=== PATIENT | female | born 1995 | race Caucasian/White ===

== ENCOUNTER 2017-01-29 11:19 | Emergency (ER) | payer BC ==
[2017-01-29] MEDS ORDERED: ACETAMINOPHEN 325 MG TAB PO ONE (11:57)
[2017-01-29 12:31] LABS: ADD DIFF? YES; ADD MORPH? NO; ADD SCAN? NO; ATYPICAL LYMPHOCYTE FLAG 10 (0-99); FRAGMENT RBC FLAG 20 (0-99); HEMATOCRIT 39.4 % (38.0-47.0); LEFT SHIFT FLG 30 (0-99); LIPEMIA HEMOLYSIS FLAG 80 (0-99); MEAN CELL HEMOGLOBIN 22.3 pg (27.9-34.1); MEAN CELL HEMOGLOBIN CONCENTR. 30.5 g/dL (32.4-36.7); MEAN CELL VOLUME 73.2 fL (81.5-99.8); MEAN PLATELET VOLUME 10.4 fL (8.7-11.7); PLATELET CLUMPS FLAG 20 (0-99); PLATELET COUNT 403 10^3/uL (150-400); RED BLOOD CELL COUNT 5.38 10^6/uL (4.18-5.33); RED CELL DISTRIBUTION WIDTH 17.3 % (11.5-15.2)
[2017-01-29 12:37] LABS: ANION GAP 17 mEq/L (8-16); CALCIUM 9.6 mg/dL (8.5-10.4); CARBON DIOXIDE 21 mEq/l (22-31); CHLORIDE 105 mEq/L (97-110); CREATININE 0.9 mg/dL (0.6-1.0); GLOMERULAR FILTRATION RATE > 60; GLUCOSE 66 mg/dL (70-100); POTASSIUM 4.4 mEq/L (3.5-5.2); SODIUM 143 mEq/L (134-144)
--- NOTE | 2017-01-29 12:52 | EDPHY ---
H & P Smoking Status: Never smoked Time Seen by Provider: 01/29/17 12:13 HPI/ROS: CHIEF COMPLAINT: Seizure HISTORY OF PRESENT ILLNESS: 21-year-old female presents to the emergency department by ambulance after having a seizure. The patient has a known seizure disorder. She is also however an insulin-dependent diabetic and her pump did not report her overnight reading. She does not think that she became hypoglycemic and had a seizure. She has had low readings even into the 40s and has not had seizures in the past. The patient presents with a headache. She did bite her tongue, however she was not incontinent of urine. She denies chest pain or difficulty breathing. Denies abdominal pain. Denies injury to her upper or lower extremities. She had URI symptoms over last week however she feels that this is resolving. She does not feel short of breath. REVIEW OF SYSTEMS: Constitutional: No fever, no chills. Eyes: No double or blurry vision. ENT: No sore throat. Respiratory: No cough, no shortness of breath. Cardiac: No chest pain. Gastrointestinal: No abdominal pain, vomiting or diarrhea. Genitourinary: No dysuria. Musculoskeletal: No neck or back pain. Skin: No rashes. Neurological: headache. (Harriet Caro) Past Medical/Surgical History: Insulin-dependent diabetic on insulin pump, seizure disorder last seizure 3 years ago (Harriet Caro) Social History: [employer] student (Harriet Caro) Physical Exam: General Appearance: Alert, no distress. Mentating normally and answering questions appropriately. Eyes: Pupils equal and round. Extraocular motions are all intact. ENT: Mouth: Mucous membranes moist. Small tongue abrasion on the left lateral aspect of the tongue. No active bleeding noted. Respiratory: No wheezing, rhonchi, or rales, lungs are clear to auscultation. Cardiovascular: Regular rate and rhythm. Gastrointestinal: Abdomen is soft and nontender, no masses, no rebound or guarding, bowel sounds normal. Neurological: Alert and oriented x 3, cranial nerves II through XII grossly intact Skin: Warm and dry, no rashes. Musculoskeletal: Nontender to palpate along the cervical, thoracic or lumbar spine. Neck is supple. Extremities: Full range of motion and no peripheral edema. Psychiatric: Patient is oriented X 3, there is no agitation. (Harriet Caro) Constitutional: Initial Vital Signs Temperature (C) 36.5 C 01/29/17 11:27 Heart Rate 102 H 01/29/17 11:27 Respiratory Rate 16 01/29/17 11:27 Blood Pressure 146/114 H 01/29/17 11:27 O2 Sat (%) 99 01/29/17 11:27 O2 Delivery Mode Room Air Allergies/Adverse Reactions: No Known Allergies Allergy (Unverified 01/29/17 11:27) Home Medications: Medication Instructions Recorded Insulin Syringe 01/29/17 Medical Decision Making - Diagnostics Imaging: Discussed imaging studies w/ body recall instructor Radiologist - Diagnostics Imaging Results: Imaging Impressions Head CT 01/29/17 12:54 Impression: Normal noncontrast CT of the brain. Results called to. Harriet Aguayo PA-C, at 1:52 PM at the time of the interpretation. ED Course/Re-evaluation: The patient was evaluated and managed by the physician's general assistant. My cosignature indicates that I reviewed the chart and I agree with the findings and plan of care as documented. I am the secondary supervising physician. ( Radha Gomes) Case was discussed with Dr. Radha Goems, secondary supervising physician, who did not directly evaluate the patient but agrees with treatment and plan. CO2 was 21. She received IV normal saline. She also received 1 mg of Ativan IV. She had no recurring seizure activity. She was given urology follow-up. She was given copies of her labs. Her blood sugar was 100 upon discharge. She did drink some apple juice. Her pump seems to be working now. She is comfortable being discharged home. She will continue her seizure medications as prescribed. (Harriet Caro) Differential Diagnosis: Seizure including but not limited to electrolyte abnormality, alcohol withdrawal , medication noncompliance, head injury, and breakthrough seizure. (Harriet Caro) - Data Points Laboratory Results: Laboratory Results 01/29/17 11:45 01/29/17 11:45 01/29/17 01/29/17 01/29/17 11:45 11:45 11:45 WBC 7.80 10^3/uL 10^3/uL (3.80-9.50) RBC 5.38 10^6/uL H 10^6/uL (4.18-5.33) Hgb 12.0 g/dL L g/dL (12.6-16.3) POC Hgb Hct 39.4 % % (38.0-47.0) POC Hct MCV 73.2 fL L fL (81.5-99.8) MCH 22.3 pg L pg (27.9-34.1) MCHC 30.5 g/dL L g/dL (32.4-36.7) RDW 17.3 % H % (11.5-15.2) Plt Count 403 10^3/uL H 10^3/uL (150-400) MPV 10.4 fL fL (8.7-11.7) Neut % (Auto) Not Reported Lymph % (Auto) Not Reported Bradford % (Auto) Not Reported Eos % (Auto) Not Reported Baso % (Auto) Not Reported Nucleat RBC Rel Count 0.0 % % (0.0-0.2) Absolute Neuts (auto) Not Reported Absolute Lymphs (auto) Not Reported Absolute Monos (auto) Not Reported Absolute Eos (auto) Not Reported Absolute Basos (auto) Not Reported Absolute Nucleated RBC 0.00 10^3/uL 10^3/uL (0-0.01) Immature Gran % Not Reported Seg Neutrophils % 57 % % Band Neutrophils % 2 % % Lymphocytes % 32 % % Monocytes % 4 % % Eosinophils % 3 % % Metamyelocytes % 1 % % Myelocytes % 1 % % Immature Gran # Not Reported Absolute Seg Neuts 4.45 10^/uL 10^/uL (1.70-6.50) Absolute Band Neuts 0.16 10^3/uL 10^3/uL (0.00-0.70) Absolute Lymphocytes 2.50 10^3/uL 10^3/uL (1.00-3.00) Absolute Monocytes 0.31 10^3/uL 10^3/uL (0.30-0.80) Absolute Eosinophils 0.23 10^3/uL 10^3/uL (0.03-0.40) Absolute Metamyelocyte 0.08 10^3/mL H 10^3/mL (0.00-0.00) Absolute Myelocytes 0.08 10^3/mL H 10^3/mL (0.00-0.00) Platelet Estimate INCREASED H (ADEQ) Polychromasia 1+ H Elliptocytes 1+ H Smear Review By Pending POC Sodium Sodium 143 mEq/L mEq/L (134-144) POC Potassium Potassium 4.4 mEq/L mEq/L (3.5-5.2) POC Chloride Chloride 105 mEq/L mEq/L (97-110) Carbon Dioxide 21 mEq/l L mEq/l (22-31) Anion Gap 17 mEq/L H mEq/L (8-16) POC BUN BUN 13 mg/dL mg/dL (7-23) Creatinine 0.9 mg/dL mg/dL (0.6-1.0) POC Creatinine Estimated GFR > 60 Glucose 66 mg/dL L mg/dL (70-100) POC Glucose Calcium 9.6 mg/dL mg/dL (8.5-10.4) Beta HCG, Qual NEGATIVE 01/29/17 11:17 WBC RBC Hgb POC Hgb 13.6 gm/dL gm/dL (12.6-16.3) Hct POC Hct 40 % % (38-47) MCV MCH MCHC RDW Plt Count MPV Neut % (Auto) Lymph % (Auto) Bradford % (Auto) Eos % (Auto) Baso % (Auto) Nucleat RBC Rel Count Absolute Neuts (auto) Absolute Lymphs (auto) Absolute Monos (auto) Absolute Eos (auto) Absolute Basos (auto) Absolute Nucleated RBC Immature Gran % Seg Neutrophils % Band Neutrophils % Lymphocytes % Monocytes % Eosinophils % Metamyelocytes % Myelocytes % Immature Gran # Absolute Seg Neuts Absolute Band Neuts Absolute Lymphocytes Absolute Monocytes Absolute Eosinophils Absolute Metamyelocyte Absolute Myelocytes Platelet Estimate Polychromasia Elliptocytes Smear Review By POC Sodium 143 mEq/L mEq/L (134-144) Sodium POC Potassium 3.8 mEq/L mEq/L (3.3-5.0) Potassium POC Chloride 106 mEq/L mEq/L (97-110) Chloride Carbon Dioxide Anion Gap POC BUN 12 mg/dL mg/dL (7-23) BUN Creatinine POC Creatinine 0.9 mg/dL mg/dL (0.6-1.0) Estimated GFR Glucose POC Glucose 66 mg/dL L mg/dL (70-100) Calcium Beta HCG, Qual Medications Given: Discontinued Medications Acetaminophen (Tylenol) 650 mg PO EDNOW ONE Stop: 01/29/17 11:58 Last Admin: 01/29/17 11:59 Dose: 650 mg Lorazepam (Ativan Injection) 1 mg IVP EDNOW ONE Stop: 01/29/17 12:54 Last Admin: 01/29/17 13:04 Dose: 1 mg Point of Care Test Results: 01/29/17 11:17 POC Sodium 143 POC Potassium 3.8 POC Chloride 106 POC BUN 12 POC Creatinine 0.9 POC Glucose 66 L Departure - Departure Disposition: Home, Routine, Self-Care Clinical Impression: Seizure, Insulin dependent diabetes mellitus Condition: Good Instructions: Epilepsy (ED), Acute Nausea and Vomiting (ED) Additional Instructions: Continue medications as prescribed. Continue to monitor your blood sugar. Follow up with a neurologist. Referrals: Ignacio French DO [Medical Doctor] - As per Instructions (Neurologist on-call)
[2017-01-29] MEDS ORDERED: LORazepam 2 MG/ML INJ IVP ONE (12:53)
[2017-01-29 13:46] LABS: ELLIPTOCYTES 1+; PLATELET ESTIMATE INCREASED (ADEQ); POLYCHROMASIA 1+
[2017-01-29 14:16] VITALS: BP 99/60; PULSE 82; RESP 18; TEMP 98.2; O2SAT 96
== END 2017-01-29 14:14 | disposition home or self-care (01) ==
DX: G40.909 Epilepsy, unspecified, not intractable, without status epilepticus (principal); E11.9 Type 2 diabetes mellitus without complications; Z79.4 Long term (current) use of insulin
CPT/HCPCS: 82947-QW; 96374; J2060